=== PATIENT | female | born 1950 | race Caucasian/White ===

== ENCOUNTER 2017-01-01 13:47 | Emergency (ER) | payer MEDICARE, OTHER ==
[2017-01-01 14:20] VITALS: BP 149/74
--- NOTE | 2017-01-01 15:46 | RAD ---
Indication: Chest injury. 2 views of the chest demonstrate no mediastinal shift. Heart is of normal size and configuration. Lung rush are clear. IMPRESSION: No active cardiopulmonary disease is noted.
--- NOTE | 2017-01-01 15:48 | RAD ---
Indication: Left rib injury. 3 views of left ribs demonstrates suggestion of a nondisplaced fracture of the anterior left 10th rib. No other fractures are identified. IMPRESSION: Suggestion of nondisplaced fracture left 10th rib.
--- NOTE | 2017-01-01 16:04 | UC ---
Truncal Trauma HPI - HPI Summary HPI Summary: FELL OVER YESTERDAY MORNING ONTO CHAIR. PAIN IN LEFT RIB AREA. NO SOB. NO BRUISING. - History Of Current Complaint Chief Complaint: UCTrauma Stated Complaint: SIDE INJURY Time Seen by Provider: 01/01/17 14:08 Hx Obtained From: Patient Onset/Duration: Sudden Onset, Lasting Days, Still Present Onset Of Pain: Post Accident Severity Initially: Severe Severity Currently: Moderate Mechanism Of Injury: Blunt Trauma, Fall From A Standing Position Aggravating Factor(s): Movement Alleviating factor(s): Rest, Shallow Breathing Associated Signs And Symptoms: Negative: SOB, Chest Pain, Cough, Hematuria, Abdominal Pain, Fever, Nausea, Vomiting - Allergies/Home Medications Allergies/Adverse Reactions: Allergies Allergy/AdvReac Type Severity Reaction Status Date / Time Ciprofloxacin [From Cipro] Allergy Hives Verified 01/01/17 14:07 Eggs or Egg-derived Products Allergy Rash Verified 01/01/17 14:07 Sulfa Antibiotics Allergy Hives Verified 01/01/17 14:07 Tetracycline Allergy Hives Verified 01/01/17 14:07 dander Allergy Rash Uncoded 01/01/17 14:09 Home Medications: Home Medications Furosemide [Lasix] 40 mg PO 01/01/17 [History] PMH/Surg Hx/FS Hx/Imm Hx Previously Healthy: Yes Cancer History Of: Denies: Breast Cancer - Surgical History Surgical History: None - Family History Known Family History: Negative: Respiratory Disease - Social History Occupation: Retired Lives: With Family Alcohol Use: Occasionally Substance Use Type: None Smoking Status (MU): Never Smoked Tobacco - Immunization History Most Recent Influenza Vaccination: never Review of Systems Constitutional: Negative Skin: Negative Eyes: Negative ENT: Negative Respiratory: Other - LEFT RIB/SIDE PAIN Cardiovascular: Negative Gastrointestinal: Negative Genitourinary: Negative Motor: Negative Neurovascular: Negative Musculoskeletal: Arthralgia - LEFT RIB/SIDE PAIN, Myalgia Neurological: Negative Psychological: Negative All Other Systems Reviewed And Are Negative: Yes Physical Exam Triage Information Reviewed: Yes Appearance: Well-Appearing, Well-Nourished, Pain Distress - MODERATE WITH MOVEMENT/PALPATION OF LEFT RIBS Vital Signs: Initial Vital Signs Temp 99.2 F 01/01/17 14:09 Pulse 66 01/01/17 14:09 Resp 16 01/01/17 14:09 BP 149/74 01/01/17 14:09 Pulse Ox 100 01/01/17 14:09 Vital Signs Reviewed: Yes Eye Exam: Normal ENT Exam: Normal ENT: Positive: Normal ENT inspection, Hearing grossly normal, Pharynx normal, TMs normal Dental Exam: Normal Neck exam: Normal Neck: Positive: Supple, Nontender, No Lymphadenopathy. Negative: Nuchal Rigidity, Tenderness @ Respiratory Exam: Normal Respiratory: Positive: Chest non-tender, Lungs clear, Normal breath sounds, No respiratory distress Cardiovascular Exam: Normal Cardiovascular: Positive: RRR, No Murmur Abdominal Exam: Normal Musculoskeletal Exam: Normal Musculoskeletal: Positive: Strength Intact, ROM Intact Neurological Exam: Normal Psychological Exam: Normal Skin Exam: Normal Truncal Trauma Course/Dx - Differential Dx/Diagnosis Differential Diagnosis/HQI/PQRI: Rib Fracture, Thoracic Provider Diagnoses: CLOSED NONDISPLACED LEFT TENTH RIB FRACTURE Discharge - Discharge Plan Condition: Stable Disposition: HOME Patient Education Materials: Rib Fracture (ED) Referrals: Ariel Cano MD [Primary Care Provider] -
== END 2017-01-01 16:24 | disposition home or self-care (01) ==
LOC: UCEAST 13:47
DX: S22.32XA Fracture of one rib, left side, initial encounter for closed fracture (principal); Z88.1 Allergy status to other antibiotic agents
CPT/HCPCS: 36415; 71020; 86803; 99212; G0463

== ENCOUNTER 2021-12-16 16:18 | Inpatient (IN) ==
[2021-12-16 18:55] LABS: ABS Eosinophils 0.2 10^3/ul (0-0.6); ABS Monocytes 0.5 10^3/ul (0-0.8); ABS Neutrophils 3.4 10^3/ul (1.5-7.7); Eosinophil % 2.5 %; Hematocrit 33 % (35-47); Hemoglobin 11.4 g/dL (12.0-16.0); Lymphocyte % 32.9 %; Mean Corpuscular HGB Conc 34 g/dL (31-36); Mean Corpuscular Hemoglobin 30 pg (27-31); Mean Corpuscular Volume 89 fL (80-97); Mean Platelet Volume 7.1 fL (7.4-10.4); Platelet Count 303 10^3/uL (150-450); Red Blood Count 3.75 10^6 /uL (3.70-4.87); Red Cell Distribution Width 14 % (10-15)
[2021-12-16 19:07] LABS: INR 1.18 (0.86-1.15)
[2021-12-16 19:51] LABS: Albumin 3.7 g/dL (3.2-5.2); Albumin/Globulin Ratio 1.2 (1-3); C Reactive Protein 129.94 mg/L (<8.01); Calcium 8.6 mg/dL (8.6-10.3); Globulin 3.1 g/dL (2-4); Potassium 3.9 mmol/L (3.5-5.0); Total Bilirubin 0.6 mg/dL (0.2-1.0); Total Protein 6.8 g/dL (6.4-8.9); eGFR CKD-EPI 68.3 (>60)
[2021-12-16] MEDS ORDERED: Iodixanol (CONTRAST) 320 MG/ML 100 ML SDV IV ONE (20:37)
[2021-12-16 20:51] LABS: High Sensitivity Troponin 1 Hr 7 pg/mL (<15)
[2021-12-16] MEDS ORDERED: Heparin 5000 UNITS/ML 1 mL VIAL IV SCH (22:00)
[2021-12-16 22:41] LABS: Urine Appearance Turbid; Urine Bilirubin Negative (Negative); Urine Blood 2+ (Negative); Urine Color Yellow; Urine Glucose Negative (Negative); Urine Ketones Negative (Negative); Urine Nitrite Negative (Negative); Urine Protein Negative (Negative); Urine Specific Gravity 1.025 (1.002-1.030); Urine Urobilinogen Negative (Negative)
[2021-12-16 22:47] LABS: Urine Bacteria 1+ (Absent); Urine Red Blood Cell 1+(3-5/hpf) (Absent); Urine Squamous Epithelial Cell Present (Absent); Urine White Blood Cell 2+(11-20/hpf) (Absent)
[2021-12-16 22:57] LABS: eGFR CKD-EPI 72.2 (>60)
[2021-12-16] MEDS: Heparin DRIP 25,000 UNITS BAG 25,000 UNITS/500 ML BAG IV SCH (23:25)
[2021-12-17] MEDS: cefTRIAXone 1 gm/50 mL D5W 1 GM/50 ML BAG IV SCH ×2 (01:48→21:20)
[2021-12-17 03:03] LABS: Calcium 8.3 mg/dL (8.6-10.3); Potassium 3.5 mmol/L (3.5-5.0)
[2021-12-17 03:11] LABS: eGFR CKD-EPI 70.2 (>60)
[2021-12-17] MEDS ORDERED: Potassium Chlor 20 meq TAB.ER PO ONE (04:30)
[2021-12-17 06:08] LABS: ABS Eosinophils 0.2 10^3/ul (0-0.6); ABS Monocytes 0.4 10^3/ul (0-0.8); ABS Neutrophils 2.6 10^3/ul (1.5-7.7); Eosinophil % 3.1 %; Hematocrit 32 % (35-47); Hemoglobin 10.8 g/dL (12.0-16.0); Lymphocyte % 37.6 %; Mean Corpuscular HGB Conc 34 g/dL (31-36); Mean Corpuscular Hemoglobin 30 pg (27-31); Mean Corpuscular Volume 89 fL (80-97); Platelet Count 299 10^3/uL (150-450); Red Blood Count 3.59 10^6 /uL (3.70-4.87); Red Cell Distribution Width 14 % (10-15); White Blood Count 5.2 10^3/uL (3.5-10.8)
[2021-12-17 06:28] LABS: Albumin 3.3 g/dL (3.2-5.2); Albumin/Globulin Ratio 1.2 (1-3); Calcium 8.8 mg/dL (8.6-10.3); Globulin 2.8 g/dL (2-4); Magnesium 2.1 mg/dL (1.9-2.7); Potassium 3.4 mmol/L (3.5-5.0); Total Bilirubin 0.6 mg/dL (0.2-1.0); Total Protein 6.1 g/dL (6.4-8.9); eGFR CKD-EPI 73.2 (>60)
[2021-12-17 06:36] LABS: Activated Partial Thrombo Time 62.2 seconds (26.0-38.0); INR 1.24 (0.86-1.15)
[2021-12-17] MEDS ORDERED: Acetaminophen IV 1 GM/100ML 100 ML IV ONE (07:58)
[2021-12-17] MEDS ORDERED: Perflutren Lipid Microsphere 3 ML VIAL ONE (08:54)
[2021-12-17] MEDS: Senna TAB 8.6 mg TAB PO SCH ×2 (09:34→21:21)
[2021-12-17] MEDS: Heparin DRIP 25,000 UNITS BAG 25,000 UNITS/500 ML BAG IV SCH (18:42)
[2021-12-18 06:21] LABS: ABS Eosinophils 0.2 10^3/ul (0-0.6); ABS Lymphocytes 1.9 10^3/ul (1.0-4.8); ABS Monocytes 0.3 10^3/ul (0-0.8); Hematocrit 32 % (35-47); Hemoglobin 11.1 g/dL (12.0-16.0); Lymphocyte % 42.5 %; Mean Corpuscular HGB Conc 35 g/dL (31-36); Mean Corpuscular Hemoglobin 31 pg (27-31); Mean Corpuscular Volume 88 fL (80-97); Mean Platelet Volume 7.2 fL (7.4-10.4); Nucleated Red Blood Cells % 0.1; Platelet Count 318 10^3/uL (150-450); Red Blood Count 3.64 10^6 /uL (3.70-4.87); Red Cell Distribution Width 14 % (10-15); White Blood Count 4.5 10^3/uL (3.5-10.8)
[2021-12-18 06:34] LABS: Calcium 8.8 mg/dL (8.6-10.3); Magnesium 2.2 mg/dL (1.9-2.7); Potassium 3.7 mmol/L (3.5-5.0); eGFR CKD-EPI 67.4 (>60)
[2021-12-18] MEDS: Senna TAB 8.6 mg TAB PO SCH (08:01)
[2021-12-18 12:00] VITALS: BP 131/76
== END 2021-12-18 13:00 | DRG 176 ==
LOC: ED 16:18 → SUATTDRO 23:26 → EDHOLD 23:26 → MEDTELE 12-17 02:56
PROVIDERS: ADMIT Hospitalist; ATTEND Student in an Organized Health Care Education/Training Program

== ENCOUNTER 2022-07-19 18:47 | Inpatient (IN) ==
[2022-07-19 19:25] LABS: ABS Lymphocytes 0.7 10^3/ul (1.0-4.8); ABS Monocytes 0.4 10^3/ul (0-0.8); ABS Neutrophils 5.7 10^3/ul (1.5-7.7); Hematocrit 36 % (35-47); Lymphocyte % 10.5 %; Mean Corpuscular HGB Conc 34 g/dL (31-36); Mean Corpuscular Hemoglobin 30 pg (27-31); Mean Corpuscular Volume 90 fL (80-97); Platelet Count 362 10^3/uL (150-450); Red Blood Count 3.96 10^6 /uL (3.70-4.87); Red Cell Distribution Width 15 % (10-15); White Blood Count 6.9 10^3/uL (3.5-10.8)
[2022-07-19 19:30] LABS: INR 1.42 (0.89-1.11)
[2022-07-19 19:48] LABS: High Sens Troponin Baseline 36 pg/mL (<15)
[2022-07-19 20:01] LABS: Albumin 4.2 g/dL (3.2-5.2); CO2 Carbon Dioxide 26 mmol/L (22-32); Calcium 9.5 mg/dL (8.6-10.3); Chloride 102 mmol/L (101-111); Sodium 136 mmol/L (135-145)
[2022-07-19 20:07] LABS: ALT 13 U/L (7-52); Albumin/Globulin Ratio 1.2 (1-3); Alkaline Phosphatase 126 U/L (35-149); Blood Urea Nitrogen 21 mg/dL (6-24); Globulin 3.6 g/dL (2-4); Glucose 175 mg/dL (70-100); Total Protein 7.8 g/dL (6.4-8.9); eGFR CKD-EPI 65.7 (>60)
[2022-07-19 20:09] LABS: Anion Gap 8 mmol/L (2-11)
[2022-07-19] MEDS ORDERED: Nystatin TOP POWDER 15 GM BTL TOPICAL ONE (20:36)
[2022-07-19 21:25] LABS: Potassium Redraw 4.2 mmol/L (3.5-5.0)
[2022-07-19 22:00] LABS: High Sensitivity Troponin 1 Hr 318 pg/mL (<15)
[2022-07-19] MEDS ORDERED: Iodixanol (CONTRAST) 320 MG/ML 100 ML SDV IV ONE (22:44)
[2022-07-19] MEDS ORDERED: Ondansetron 4 mg VIAL 2 MG/ML 2 ml VIAL IV PRN (23:35)
[2022-07-20 01:20] LABS: C Reactive Protein 88.42 mg/L (<8.01)
[2022-07-20 01:49] LABS: Magnesium 2.3 mg/dL (1.9-2.7)
[2022-07-20 02:11] LABS: Urine Appearance Cloudy; Urine Bilirubin Negative (Negative); Urine Blood 2+ (Negative); Urine Color Yellow; Urine Glucose 1+(50 mg/dL) (Negative); Urine Ketones Trace (Negative); Urine Nitrite Positive (Negative); Urine Protein 1+(30 mg/dL) (Negative); Urine Urobilinogen Negative (Negative)
[2022-07-20 02:14] LABS: Urine Bacteria 3+ (Absent); Urine Red Blood Cell 3+(>10/hpf) (Absent); Urine Squamous Epithelial Cell Present (Absent); Urine White Blood Cell Absent (Absent)
[2022-07-20 02:20] LABS: Urine Specific Gravity > 1.060 (1.002-1.030)
[2022-07-20] MEDS ORDERED: cefTRIAXone 1 gm/50 mL D5W 1 GM/50 ML BAG IV SCH (02:30)
[2022-07-20 07:11] LABS: INR 1.27 (0.89-1.11)
[2022-07-20 07:11] LABS: ABS Lymphocytes 1.3 10^3/ul (1.0-4.8); ABS Monocytes 0.6 10^3/ul (0-0.8); ABS Neutrophils 4.3 10^3/ul (1.5-7.7); Eosinophil % 0.7 %; Hematocrit 33 % (35-47); Hemoglobin 11.3 g/dL (12.0-16.0); Lymphocyte % 20.5 %; Mean Corpuscular HGB Conc 34 g/dL (31-36); Mean Corpuscular Hemoglobin 30 pg (27-31); Mean Corpuscular Volume 90 fL (80-97); Mean Platelet Volume 7.5 fL (7.4-10.4); Platelet Count 276 10^3/uL (150-450); Red Blood Count 3.71 10^6 /uL (3.70-4.87); Red Cell Distribution Width 15 % (10-15); White Blood Count 6.1 10^3/uL (3.5-10.8)
[2022-07-20 07:29] LABS: Calcium 8.8 mg/dL (8.6-10.3); Magnesium 2.2 mg/dL (1.9-2.7); Potassium 3.9 mmol/L (3.5-5.0); eGFR CKD-EPI 87.9 (>60)
[2022-07-20] MEDS: Mometasone 220 MCG MDI INH SCH (08:34)
[2022-07-20] MEDS ORDERED: Fluticasone HFA 44 mcg(NF) MDI INH SCH (09:00)
[2022-07-20] MEDS: Heparin DRIP 25,000 UNITS BAG 25,000 UNITS/500 ML BAG IV SCH (10:17)
[2022-07-20] MEDS: Heparin 5000 UNITS/ML 1 mL VIAL IV SCH ×2 (10:19→17:22)
[2022-07-20 10:37] LABS: eGFR CKD-EPI 93.4 (>60)
[2022-07-20 10:57] LABS: HDL Cholesterol 38.7 mg/dL
[2022-07-20 11:09] LABS: HDL Cholesterol 40.7 mg/dL
[2022-07-20] MEDS ORDERED: Perflutren Lipid Microsphere 3 ML VIAL ONE (12:33)
[2022-07-20] MEDS ORDERED: Zosyn per Pharmacy NOTE FOLLOW UP SCH (15:00)
[2022-07-20] MEDS ORDERED: ZOSYN 3.375 GM x ONE DOSE over 30 miuntes IV (15:00)
[2022-07-20] MEDS: Acetaminophen IV 1 GM/100ML 1,000 MG/100 ML BAG IV PRN (20:56)
[2022-07-20] MEDS: ZOSYN 3.375 GM Q8H per EXTENDED INFUSION IV SCH (22:21)
[2022-07-21 01:43] LABS: Urine Appearance Cloudy; Urine Bilirubin Negative (Negative); Urine Blood 1+ (Negative); Urine Color Yellow; Urine Glucose Negative (Negative); Urine Ketones Negative (Negative); Urine Nitrite Negative (Negative); Urine Protein Negative (Negative); Urine Specific Gravity 1.011 (1.002-1.030); Urine Urobilinogen Negative (Negative)
[2022-07-21 01:57] LABS: Urine Bacteria 1+ (Absent); Urine Red Blood Cell 1+(3-5/hpf) (Absent); Urine Squamous Epithelial Cell Present (Absent); Urine White Blood Cell 1+(6-10/hpf) (Absent)
[2022-07-21] MEDS: ZOSYN 3.375 GM Q8H per EXTENDED INFUSION IV SCH ×3 (03:39→22:32)
[2022-07-21 06:00] LABS: ABS Eosinophils 0.2 10^3/ul (0-0.6); ABS Monocytes 0.5 10^3/ul (0-0.8); ABS Neutrophils 4.1 10^3/ul (1.5-7.7); Eosinophil % 3.3 %; Hematocrit 30 % (35-47); Hemoglobin 10.2 g/dL (12.0-16.0); Lymphocyte % 29.6 %; Mean Corpuscular HGB Conc 34 g/dL (31-36); Mean Corpuscular Hemoglobin 30 pg (27-31); Mean Corpuscular Volume 90 fL (80-97); Mean Platelet Volume 7.2 fL (7.4-10.4); Platelet Count 255 10^3/uL (150-450); Red Blood Count 3.39 10^6 /uL (3.70-4.87); Red Cell Distribution Width 14 % (10-15); White Blood Count 6.9 10^3/uL (3.5-10.8)
[2022-07-21 06:33] LABS: Potassium 3.6 mmol/L (3.5-5.0); eGFR CKD-EPI 69.3 (>60)
[2022-07-21] MEDS: Heparin 5000 UNITS/ML 1 mL VIAL IV SCH (07:05)
[2022-07-21] MEDS: Acetaminophen IV 1 GM/100ML 1,000 MG/100 ML BAG IV PRN ×2 (09:01→20:56)
[2022-07-21] MEDS: Heparin DRIP 25,000 UNITS BAG 25,000 UNITS/500 ML BAG IV SCH (09:57)
[2022-07-21] MEDS ORDERED: Regadenoson 0.4 MG/5 ML SYRINGE ONE (11:12)
[2022-07-21] MEDS: Mometasone 220 MCG MDI INH SCH (13:01)
[2022-07-21] MEDS: Nystatin TOP POWDER 15 GM BTL TOPICAL SCH (21:04)
[2022-07-22] MEDS ORDERED: ZOSYN 3.375 GM Q8H per EXTENDED INFUSION IV SCH (06:00)
[2022-07-22 06:03] LABS: ABS Eosinophils 0.2 10^3/ul (0-0.6); ABS Lymphocytes 1.9 10^3/ul (1.0-4.8); ABS Monocytes 0.3 10^3/ul (0-0.8); ABS Neutrophils 1.6 10^3/ul (1.5-7.7); Eosinophil % 4.5 %; Hematocrit 32 % (35-47); Hemoglobin 10.7 g/dL (12.0-16.0); Lymphocyte % 47.5 %; Mean Corpuscular HGB Conc 33 g/dL (31-36); Mean Corpuscular Hemoglobin 30 pg (27-31); Mean Corpuscular Volume 91 fL (80-97); Mean Platelet Volume 7.2 fL (7.4-10.4); Platelet Count 262 10^3/uL (150-450); Red Blood Count 3.56 10^6 /uL (3.70-4.87); Red Cell Distribution Width 14 % (10-15); White Blood Count 4.1 10^3/uL (3.5-10.8)
[2022-07-22] MEDS: Heparin DRIP 25,000 UNITS BAG 25,000 UNITS/500 ML BAG IV SCH (06:30)
[2022-07-22 06:31] LABS: Calcium 8.1 mg/dL (8.6-10.3); Potassium 3.7 mmol/L (3.5-5.0); eGFR CKD-EPI 72.2 (>60)
[2022-07-22] MEDS ORDERED: Polyethylene Glycol 3350 17 GM PACKET PO PRN (08:28)
[2022-07-22] MEDS ORDERED: Senna TAB 8.6 mg TAB PO PRN (08:28)
[2022-07-22] MEDS: Mometasone 220 MCG MDI INH SCH (08:31)
[2022-07-22] MEDS: Nystatin TOP POWDER 15 GM BTL TOPICAL SCH ×2 (10:10→21:44)
[2022-07-22] MEDS: Acetaminophen IV 1 GM/100ML 1,000 MG/100 ML BAG IV PRN (10:12)
[2022-07-22] MEDS: Potassium Chlor 10 meq TAB PO SCH (15:00)
[2022-07-23] MEDS: Albuterol HFA INHALER 8 gm MDI INH PRN ×3 (02:11→21:07)
[2022-07-23 07:10] LABS: ABS Eosinophils 0.2 10^3/ul (0-0.6); ABS Lymphocytes 1.7 10^3/ul (1.0-4.8); ABS Monocytes 0.3 10^3/ul (0-0.8); ABS Neutrophils 1.9 10^3/ul (1.5-7.7); Hematocrit 31 % (35-47); Hemoglobin 10.3 g/dL (12.0-16.0); Lymphocyte % 41.1 %; Mean Corpuscular HGB Conc 33 g/dL (31-36); Mean Corpuscular Hemoglobin 30 pg (27-31); Mean Corpuscular Volume 91 fL (80-97); Mean Platelet Volume 7.4 fL (7.4-10.4); Platelet Count 262 10^3/uL (150-450); Red Cell Distribution Width 14 % (10-15); White Blood Count 4.1 10^3/uL (3.5-10.8)
[2022-07-23 07:27] LABS: Calcium 8.2 mg/dL (8.6-10.3); Potassium 4.2 mmol/L (3.5-5.0); eGFR CKD-EPI 76.4 (>60)
[2022-07-23] MEDS: Acetaminophen IV 1 GM/100ML 1,000 MG/100 ML BAG IV PRN (08:19)
[2022-07-23] MEDS: Potassium Chlor 10 meq TAB PO SCH (08:26)
[2022-07-23] MEDS: Nystatin TOP POWDER 15 GM BTL TOPICAL SCH ×2 (11:12→21:07)
[2022-07-23] MEDS: Mometasone 220 MCG MDI INH SCH (12:51)
[2022-07-24 10:04] LABS: ABS Eosinophils 0.1 10^3/ul (0-0.6); ABS Lymphocytes 1.5 10^3/ul (1.0-4.8); ABS Monocytes 0.2 10^3/ul (0-0.8); ABS Neutrophils 2.1 10^3/ul (1.5-7.7); Eosinophil % 3.4 %; Hematocrit 35 % (35-47); Hemoglobin 11.7 g/dL (12.0-16.0); Mean Corpuscular HGB Conc 33 g/dL (31-36); Mean Corpuscular Hemoglobin 30 pg (27-31); Mean Corpuscular Volume 91 fL (80-97); Mean Platelet Volume 7.2 fL (7.4-10.4); Platelet Count 319 10^3/uL (150-450); Red Blood Count 3.87 10^6 /uL (3.70-4.87); Red Cell Distribution Width 14 % (10-15); White Blood Count 3.9 10^3/uL (3.5-10.8)
[2022-07-24] MEDS: Mometasone 220 MCG MDI INH SCH (10:17)
[2022-07-24 10:35] LABS: Potassium 4.2 mmol/L (3.5-5.0); eGFR CKD-EPI 75.3 (>60)
[2022-07-24] MEDS: Potassium Chlor 10 meq TAB PO SCH (10:52)
[2022-07-24] MEDS: Nystatin TOP POWDER 15 GM BTL TOPICAL SCH ×2 (11:00→23:41)
[2022-07-25 00:28] LABS: Rapid COVID-19 Molecular Undetected (Undetected)
[2022-07-25] MEDS: Potassium Chlor 10 meq TAB PO SCH (08:39)
[2022-07-25] MEDS: Nystatin TOP POWDER 15 GM BTL TOPICAL SCH (08:42)
[2022-07-25] MEDS: Mometasone 220 MCG MDI INH SCH (08:42)
[2022-07-25 08:43] VITALS: BP 138/58
== END 2022-07-25 12:55 | DRG 313 ==
LOC: ED 18:47 → EDHOLD 18:47 → SUATTDRO 23:35 → MEDTELE 07-20 02:15 → SUATTDRO 07-20 10:30
PROVIDERS: ADMIT Internal Medicine; ATTEND Internal Medicine

== ENCOUNTER 2022-10-05 16:33 | Inpatient (IN) ==
[2022-10-05 17:44] LABS: ABS Lymphocytes 1.1 10^3/ul (1.0-4.8); ABS Monocytes 0.6 10^3/ul (0-0.8); ABS Neutrophils 4.8 10^3/ul (1.5-7.7); Eosinophil % 0.6 %; Hematocrit 34 % (35-47); Hemoglobin 10.9 g/dL (12.0-16.0); Lymphocyte % 16.5 %; Mean Corpuscular HGB Conc 32 g/dL (31-36); Mean Corpuscular Hemoglobin 28 pg (27-31); Mean Corpuscular Volume 86 fL (80-97); Mean Platelet Volume 6.7 fL (7.4-10.4); Platelet Count 328 10^3/uL (150-450); Red Blood Count 3.92 10^6 /uL (3.70-4.87); Red Cell Distribution Width 14 % (10-15); White Blood Count 6.6 10^3/uL (3.5-10.8)
[2022-10-05 18:26] LABS: Albumin 3.7 g/dL (3.2-5.2)
[2022-10-05 18:30] LABS: Potassium 3.7 mmol/L (3.5-5.0); Total Bilirubin 0.5 mg/dL (0.2-1.0)
[2022-10-05 18:32] LABS: Albumin/Globulin Ratio 1.1 (1-3); C Reactive Protein 61.36 mg/L (<8.01); Globulin 3.4 g/dL (2-4); Total Protein 7.1 g/dL (6.4-8.9)
[2022-10-05 19:05] LABS: Creatinine, Serum 0.9 mg/dL (0.51-0.95); eGFR CKD-EPI 67.9 (>60)
[2022-10-05] MEDS ORDERED: cefTRIAXone 1 gm/50 mL D5W 1 GM/50 ML BAG IV SCH (23:45)
[2022-10-06 00:40] LABS: Urine Appearance Cloudy; Urine Bilirubin Negative (Negative); Urine Blood 2+ (Negative); Urine Color Yellow; Urine Glucose Negative (Negative); Urine Ketones Negative (Negative); Urine Nitrite Negative (Negative); Urine Protein Negative (Negative); Urine Specific Gravity 1.008 (1.002-1.030); Urine Urobilinogen Negative (Negative)
[2022-10-06 00:42] LABS: Urine Bacteria 2+ (Absent); Urine Red Blood Cell Absent (Absent); Urine White Blood Cell Trace(0-5/hpf) (Absent)
[2022-10-06] MEDS ORDERED: metroNIDAZOLE IV 500 MG/100ML 500 MG/100 ML BAG IVPB SCH ×2 (02:00→03:30)
[2022-10-06 07:09] LABS: ABS Eosinophils 0.1 10^3/ul (0-0.6); ABS Lymphocytes 1.3 10^3/ul (1.0-4.8); ABS Monocytes 0.4 10^3/ul (0-0.8); ABS Neutrophils 2.6 10^3/ul (1.5-7.7); Eosinophil % 1.4 %; Hematocrit 37 % (35-47); Lymphocyte % 29.8 %; Mean Corpuscular HGB Conc 32 g/dL (31-36); Mean Corpuscular Hemoglobin 28 pg (27-31); Mean Corpuscular Volume 86 fL (80-97); Mean Platelet Volume 6.6 fL (7.4-10.4); Platelet Count 314 10^3/uL (150-450); Red Blood Count 4.31 10^6 /uL (3.70-4.87); Red Cell Distribution Width 14 % (10-15); White Blood Count 4.4 10^3/uL (3.5-10.8)
[2022-10-06 07:57] LABS: Calcium 8.6 mg/dL (8.6-10.3); Creatinine, Serum 0.76 mg/dL (0.51-0.95); Potassium 3.6 mmol/L (3.5-5.0); eGFR CKD-EPI 83.2 (>60)
[2022-10-06] MEDS: Albuterol HFA INHALER 8 gm MDI INH PRN (10:54)
[2022-10-06 13:58] LABS: Erythrocyte Sed Rate 73 mm/Hr (0-29)
[2022-10-07 06:22] LABS: ABS Eosinophils 0.1 10^3/ul (0-0.6); ABS Lymphocytes 1.7 10^3/ul (1.0-4.8); ABS Monocytes 0.4 10^3/ul (0-0.8); ABS Neutrophils 2.7 10^3/ul (1.5-7.7); Eosinophil % 2.4 %; Hematocrit 31 % (35-47); Hemoglobin 9.9 g/dL (12.0-16.0); Lymphocyte % 33.9 %; Mean Corpuscular HGB Conc 32 g/dL (31-36); Mean Corpuscular Hemoglobin 28 pg (27-31); Mean Corpuscular Volume 86 fL (80-97); Mean Platelet Volume 6.9 fL (7.4-10.4); Nucleated Red Blood Cells % 0.1; Platelet Count 298 10^3/uL (150-450); Red Blood Count 3.57 10^6 /uL (3.70-4.87); Red Cell Distribution Width 14 % (10-15)
[2022-10-07 06:38] LABS: Calcium 8.3 mg/dL (8.6-10.3); Creatinine, Serum 0.7 mg/dL (0.51-0.95); Potassium 3.9 mmol/L (3.5-5.0); eGFR CKD-EPI 91.8 (>60)
[2022-10-07] MEDS: Albuterol HFA INHALER 8 gm MDI INH PRN (08:43)
[2022-10-07 09:25] LABS: C Reactive Protein 53.27 mg/L (<8.01)
[2022-10-07 11:39] LABS: Erythrocyte Sed Rate 73 mm/Hr (0-29)
[2022-10-07] MEDS: Ketorolac 10 mg TAB (NF) PO PRN (16:53)
[2022-10-07] MEDS ORDERED: Ketorolac 10 mg TAB (NF) PO SCH (18:00)
[2022-10-08] MEDS: Ketorolac 10 mg TAB (NF) PO PRN ×4 (07:47→20:21)
[2022-10-08] MEDS: Albuterol HFA INHALER 8 gm MDI INH PRN (08:48)
[2022-10-08] MEDS ORDERED: Senna TAB 8.6 mg TAB PO PRN (13:50)
[2022-10-08] MEDS ORDERED: Magnesium Hydroxide LIQ 30 ML UDC PO PRN (13:50)
[2022-10-08] MEDS: Collagenase 250 units/gm OINT 1 tube TOPICAL SCH (16:44)
[2022-10-09] MEDS: Ketorolac 10 mg TAB (NF) PO PRN ×3 (05:32→22:42)
[2022-10-09 07:58] LABS: ABS Eosinophils 0.2 10^3/ul (0-0.6); ABS Lymphocytes 1.3 10^3/ul (1.0-4.8); ABS Monocytes 0.3 10^3/ul (0-0.8); ABS Neutrophils 1.6 10^3/ul (1.5-7.7); Eosinophil % 5.6 %; Hematocrit 32 % (35-47); Hemoglobin 10.2 g/dL (12.0-16.0); Lymphocyte % 38.4 %; Mean Corpuscular HGB Conc 32 g/dL (31-36); Mean Corpuscular Hemoglobin 27 pg (27-31); Mean Corpuscular Volume 86 fL (80-97); Mean Platelet Volume 6.5 fL (7.4-10.4); Platelet Count 324 10^3/uL (150-450); Red Blood Count 3.73 10^6 /uL (3.70-4.87); Red Cell Distribution Width 14 % (10-15); White Blood Count 3.4 10^3/uL (3.5-10.8)
[2022-10-09] MEDS: Collagenase 250 units/gm OINT 1 tube TOPICAL SCH (08:50)
[2022-10-09] MEDS: Albuterol HFA INHALER 8 gm MDI INH PRN (10:21)
[2022-10-09] MEDS ORDERED: Morphine 2 MG/ML SYRINGE IV ONE (12:18)
[2022-10-10 08:53] LABS: Rapid COVID-19 Molecular Undetected (Undetected)
[2022-10-10] MEDS: Albuterol HFA INHALER 8 gm MDI INH PRN (08:53)
[2022-10-10] MEDS: Ketorolac 10 mg TAB (NF) PO PRN (10:23)
[2022-10-10] MEDS: Collagenase 250 units/gm OINT 1 tube TOPICAL SCH (10:25)
[2022-10-10 11:14] VITALS: BP 133/57
== END 2022-10-10 12:47 | DRG 622 ==
LOC: ED 16:33 → EDHOLD 16:33 → SUATTDRO 23:46 → SSU 10-06 02:03 → SUATTDRO 10-07 12:00
PROVIDERS: ADMIT Internal Medicine; ATTEND Family Medicine

== ENCOUNTER 2022-11-25 20:36 | Inpatient (IN) ==
[2022-11-25] MEDS ORDERED: NS 0.9% 1000 ml BAG 1,000 ML IV ONE (21:06)
[2022-11-25] MEDS ORDERED: Acetaminophen IV 1 GM/100ML 1,000 MG/100 ML BAG IV ONE (21:26)
[2022-11-25 21:58] LABS: ABS Lymphocytes 0.7 10^3/ul (1.0-4.8); ABS Monocytes 0.7 10^3/ul (0-0.8); ABS Neutrophils 16.1 10^3/ul (1.5-7.7); Hematocrit 35 % (35-47); Hemoglobin 11.5 g/dL (12.0-16.0); Lymphocyte % 3.7 %; Mean Corpuscular HGB Conc 33 g/dL (31-36); Mean Corpuscular Hemoglobin 28 pg (27-31); Mean Corpuscular Volume 84 fL (80-97); Mean Platelet Volume 7.3 fL (7.4-10.4); Platelet Count 268 10^3/uL (150-450); Red Blood Count 4.13 10^6 /uL (3.70-4.87); Red Cell Distribution Width 17 % (10-15); White Blood Count 17.6 10^3/uL (3.5-10.8)
[2022-11-25 22:45] LABS: Calcium 9.4 mg/dL (8.6-10.3); Creatinine, Serum 1.16 mg/dL (0.51-0.95); Globulin 4.2 g/dL (2-4); Potassium 3.8 mmol/L (3.5-5.0); Total Bilirubin 1.1 mg/dL (0.2-1.0); Total Protein 8.2 g/dL (6.4-8.9); eGFR CKD-EPI 50.1 (>60)
[2022-11-25] MEDS ORDERED: Iodixanol (CONTRAST) 320 MG/ML 100 ML SDV IV ONE (22:56)
[2022-11-26] MEDS ORDERED: cefTRIAXone 2 gm/50 mL D5W 2 GM/50 ML BAG IV ONE (00:05)
[2022-11-26] MEDS ORDERED: Magnesium Hydroxide LIQ 30 ML UDC PO PRN (02:21)
[2022-11-26] MEDS ORDERED: Polyethylene Glycol 3350 17 GM PACKET PO PRN (02:21)
[2022-11-26] MEDS ORDERED: Senna TAB 8.6 mg TAB PO PRN (02:26)
[2022-11-26] MEDS ORDERED: Albuterol HFA INHALER 8 gm MDI INH PRN (02:26)
[2022-11-26] MEDS ORDERED: Vancomycin 1,000 MG in NS 0.9% 250 ml 250 ML IVPB ONE (02:47)
[2022-11-26] MEDS ORDERED: NS 0.9% 1000 ml BAG 1,000 ML IV SCH (03:00)
[2022-11-26] MEDS ORDERED: Vancomycin per Pharmacy 1 EA NOTE FOLLOW UP SCH (03:00)
[2022-11-26] MEDS ORDERED: Vancomycin 2,000 MG in NS 0.9% 500 ml BAG 500 ML IVPB ONE (06:00)
[2022-11-26] MEDS ORDERED: Vancomycin 1,750 MG in NS 0.9% 500 ml BAG 500 ML IVPB SCH (06:30)
[2022-11-26] MEDS: Cefepime 2 GM in Dextrose 2 GM/50 ML BAG IV SCH ×2 (10:14→21:18)
[2022-11-26] MEDS: Potassium Chlor 10 meq TAB PO SCH (10:15)
[2022-11-26] MEDS: Collagenase 250 units/gm OINT 1 tube TOPICAL SCH (10:19)
[2022-11-26 15:32] LABS: Hematocrit 32 % (35-47); Hemoglobin 10.4 g/dL (12.0-16.0); Mean Corpuscular HGB Conc 33 g/dL (31-36); Mean Corpuscular Hemoglobin 28 pg (27-31); Mean Corpuscular Volume 84 fL (80-97); Mean Platelet Volume 7.9 fL (7.4-10.4); Platelet Count 222 10^3/uL (150-450); Red Blood Count 3.77 10^6 /uL (3.70-4.87); Red Cell Distribution Width 17 % (10-15); White Blood Count 9.7 10^3/uL (3.5-10.8)
[2022-11-26 15:55] LABS: Calcium 8.6 mg/dL (8.6-10.3); Creatinine, Serum 0.89 mg/dL (0.51-0.95); Potassium 3.8 mmol/L (3.5-5.0); eGFR CKD-EPI 68.8 (>60)
[2022-11-27] MEDS: Cefepime 2 GM in Dextrose 2 GM/50 ML BAG IV SCH ×2 (00:44→12:51)
[2022-11-27] MEDS ORDERED: Vancomycin 1,750 MG in NS 0.9% 500 ml BAG 500 ML IVPB SCH (06:30)
[2022-11-27 08:55] LABS: ABS Eosinophils 0.1 10^3/ul (0-0.6); ABS Lymphocytes 1.1 10^3/ul (1.0-4.8); ABS Monocytes 0.4 10^3/ul (0-0.8); ABS Neutrophils 4.1 10^3/ul (1.5-7.7); Eosinophil % 1.1 %; Hematocrit 30 % (35-47); Hemoglobin 9.3 g/dL (12.0-16.0); Lymphocyte % 19.1 %; Mean Corpuscular HGB Conc 31 g/dL (31-36); Mean Corpuscular Hemoglobin 28 pg (27-31); Mean Corpuscular Volume 91 fL (80-97); Mean Platelet Volume 7.4 fL (7.4-10.4); Nucleated Red Blood Cells % 0.1; Platelet Count 188 10^3/uL (150-450); Red Blood Count 3.27 10^6 /uL (3.70-4.87); Red Cell Distribution Width 18 % (10-15); White Blood Count 5.6 10^3/uL (3.5-10.8)
[2022-11-27 08:56] LABS: Potassium 3.8 mmol/L (3.5-5.0)
[2022-11-27 09:01] LABS: Creatinine, Serum 0.73 mg/dL (0.51-0.95); eGFR CKD-EPI 87.3 (>60)
[2022-11-27] MEDS: Collagenase 250 units/gm OINT 1 tube TOPICAL SCH (09:54)
[2022-11-27] MEDS: Potassium Chlor 10 meq TAB PO SCH (09:58)
[2022-11-27] MEDS ORDERED: Piperacillin/Tazobac ADVAN 3.375 GM in NS 0.9% 100 ml BAG 100 ML IV ONE (15:20)
[2022-11-27] MEDS ORDERED: Dextrose 50% Syringe 50 ml 25 GM/50 ML SYRINGE IV PUSH PRN (15:31)
[2022-11-27] MEDS ORDERED: Zosyn per Pharmacy NOTE FOLLOW UP SCH (16:00)
[2022-11-27] MEDS: ZOSYN 3.375 GM Q8H per EXTENDED INFUSION IV SCH (20:30)
[2022-11-27] MEDS ORDERED: Cefepime 2 GM in Dextrose 2 GM/50 ML BAG IV SCH (22:00)
[2022-11-28 02:06] LABS: Urine Appearance Cloudy; Urine Bilirubin Negative (Negative); Urine Blood 2+ (Negative); Urine Color Yellow; Urine Glucose Negative (Negative); Urine Ketones Negative (Negative); Urine Nitrite Negative (Negative); Urine Protein 1+(30 mg/dL) (Negative); Urine Specific Gravity 1.023 (1.002-1.030); Urine Urobilinogen Negative (Negative)
[2022-11-28 02:08] LABS: Urine Osmo 548 mOsm/kg (150-1150)
[2022-11-28 02:15] LABS: Urine Bacteria 1+ (Absent); Urine Red Blood Cell 3+(>10/hpf) (Absent); Urine Squamous Epithelial Cell Present (Absent); Urine White Blood Cell 2+(11-20/hpf) (Absent); Urine Yeast Present (Absent)
[2022-11-28] MEDS: ZOSYN 3.375 GM Q8H per EXTENDED INFUSION IV SCH ×2 (05:12→12:29)
[2022-11-28 06:25] LABS: ABS Eosinophils 0.2 10^3/ul (0-0.6); ABS Monocytes 0.4 10^3/ul (0-0.8); ABS Neutrophils 2.7 10^3/ul (1.5-7.7); Eosinophil % 4.2 %; Hematocrit 29 % (35-47); Hemoglobin 9.5 g/dL (12.0-16.0); Lymphocyte % 37.3 %; Mean Corpuscular HGB Conc 33 g/dL (31-36); Mean Corpuscular Hemoglobin 28 pg (27-31); Mean Corpuscular Volume 85 fL (80-97); Mean Platelet Volume 7.4 fL (7.4-10.4); Nucleated Red Blood Cells % 0.1; Platelet Count 203 10^3/uL (150-450); Red Blood Count 3.36 10^6 /uL (3.70-4.87); Red Cell Distribution Width 17 % (10-15); White Blood Count 5.4 10^3/uL (3.5-10.8)
[2022-11-28 06:44] LABS: Anion Gap 4 mmol/L (2-11); Blood Urea Nitrogen 17 mg/dL (6-24); CO2 Carbon Dioxide 26 mmol/L (22-32); Chloride 108 mmol/L (101-111); Creatinine, Serum 0.71 mg/dL (0.51-0.95); Glucose 112 mg/dL (70-100); Magnesium 2.1 mg/dL (1.9-2.7); Potassium 4.1 mmol/L (3.5-5.0); Sodium 138 mmol/L (135-145); eGFR CKD-EPI 90.3 (>60)
[2022-11-28] MEDS: Collagenase 250 units/gm OINT 1 tube TOPICAL SCH (09:47)
[2022-11-28] MEDS ORDERED: Vancomycin 1,000 MG in NS 0.9% 250 ml 250 ML IVPB ONE (13:10)
[2022-11-28] MEDS ORDERED: Vancomycin per Pharmacy 1 EA NOTE FOLLOW UP SCH (14:00)
[2022-11-28 15:27] LABS: Ferritin 64.2 ng/mL (11-307)
[2022-11-28 15:31] LABS: % Iron Saturation 9 % (15-55); .Transferrin 155 mg/dL (203-362); Iron < 20 ug/dL (50-212); Total Iron Binding Capacity 217 mcg/dL (250-450); Transferrin 155 mg/dL (203-362); Unsaturated Iron Binding 197 ug/dL
[2022-11-28] MEDS: Amoxicillin/Clavul 500/125 TAB (Augmentin 500 mg tab) PO SCH (21:13)
[2022-11-29] MEDS ORDERED: Vancomycin Trough Check NOTE FOLLOW UP ONE (06:00)
[2022-11-29 06:22] LABS: ABS Eosinophils 0.2 10^3/ul (0-0.6); ABS Lymphocytes 2.1 10^3/ul (1.0-4.8); ABS Monocytes 0.4 10^3/ul (0-0.8); ABS Neutrophils 2.4 10^3/ul (1.5-7.7); Eosinophil % 4.6 %; Hematocrit 28 % (35-47); Hemoglobin 9.2 g/dL (12.0-16.0); Mean Corpuscular HGB Conc 33 g/dL (31-36); Mean Corpuscular Hemoglobin 28 pg (27-31); Mean Corpuscular Volume 85 fL (80-97); Mean Platelet Volume 7.4 fL (7.4-10.4); Nucleated Red Blood Cells % 0.1; Platelet Count 232 10^3/uL (150-450); Red Blood Count 3.25 10^6 /uL (3.70-4.87); Red Cell Distribution Width 17 % (10-15); White Blood Count 5.2 10^3/uL (3.5-10.8)
[2022-11-29 06:37] LABS: Calcium 7.8 mg/dL (8.6-10.3); Creatinine, Serum 0.64 mg/dL (0.51-0.95); Potassium 4.2 mmol/L (3.5-5.0); eGFR CKD-EPI 93.8 (>60)
[2022-11-29] MEDS: Amoxicillin/Clavul 500/125 TAB (Augmentin 500 mg tab) PO SCH (08:34)
[2022-11-29] MEDS ORDERED: Vancomycin 1,750 MG in NS 0.9% 500 ml BAG 500 ML IVPB SCH (09:00)
[2022-11-29] MEDS: Collagenase 250 units/gm OINT 1 tube TOPICAL SCH (12:05)
[2022-11-29 13:34] LABS: Rapid COVID-19 Molecular Undetected (Undetected)
[2022-11-29 16:02] VITALS: BP 128/55
[2022-11-30] MEDS ORDERED: Vancomycin Trough Check NOTE FOLLOW UP ONE (08:30)
== END 2022-11-29 15:50 | DRG 638 ==
LOC: ED 20:36 → EDHOLD 20:36 → OBSVTOIN 11-26 01:54 → SUATTDRO 11-26 01:54 → MEDTELE 11-26 16:41
PROVIDERS: ADMIT Internal Medicine; ATTEND Family Medicine